=== PATIENT | male | born 1985 | race Caucasian/White ===

== ENCOUNTER 2016-06-16 01:07 | Emergency (ER) | payer SELFPAY ==
--- NOTE | ~2016-06-16 | ER ---
PATIENT'S NAME: EDE GRAY [facility] AGE: 31 Y [address] ROOM: [place] [address] LOCATION: ED ADMIT DATE: 06/16/2016 ER/Outpatient Report DISCHARGE DATE: 06/16/2016 FAMILY PHYSICIAN: PHYSICIAN, NO ATTENDING PHYSICIAN: Rosa Sampson HISTORY OF PRESENT ILLNESS: This is a 31-year-old male who presents today with chief complaint of left upper tooth pain. The patient says he has had a root canal there before and he broke it recently, but in the last day it has been just excruciating pain. Has taken ibuprofen without any relief of the pain. Currently, his pain is 8/10 and max is 10/10. He says the pain sort of radiates to the whole left side of his face, but he denies any fever, chills, sore throat, cough, hoarse voice, or any other complaints at this time. PAST MEDICAL HISTORY: Includes hypertension, bipolar disorder. SOCIAL HISTORY: No surgical history. SOCIAL HISTORY: He smokes half-a-pack per day, has done so for years. No drugs or alcohol use. MEDICATIONS: Please see med list. ALLERGIES: NONE. REVIEW OF SYSTEMS: Reviewed by me and negative with the exception of those discussed in HPI. PHYSICAL EXAMINATION: VITAL SIGNS: The patient is 5 feet 9 inches, he weighs 78.6 kilograms, blood pressure 141/90, heart rate 72, respiratory rate 16, temperature is 97.6, saturating 96% on room air. GENERAL: The patient is holding an ice pack to left side of his face. He looks uncomfortable but nontoxic. HEENT: His mouth; the left upper molar is cracked with exposure of tooth. There is some mild swelling of the gums around it, but there is no fluctuance and there is no drainage. He has no tongue edema. He does not have any elevation of the tongue. NECK: He does not have any brawny edema of the neck. PATIENT'S NAME: EDE GRAY [facility] AGE: 31 Y [address] ROOM: [place] [address] LOCATION: [facility] ADMIT DATE: 06/16/2016 ER/Outpatient Report DISCHARGE DATE: 06/16/2016 FAMILY PHYSICIAN: PHYSICIAN, NO ATTENDING PHYSICIAN: Rosa Sampson EMERGENCY ROOM COURSE: The patient was given 2 Percocets. Instructions to follow up with a dentist as soon as he can as the known treatment for that would be to have that tooth pulled, and he was also given a script for some Percocet and also I gave him a script for penicillin-VK to cover for infection. He understands that he needs to follow up with a dentist. IMPRESSION: Dental pain. MD ANDREW CORDERO/lazaro /[id number] d: 06/16/16399 t: 06/16/16 1822, OUTPATIENT REPORT
[2016-08-18] MEDS ORDERED: LAMICTAL200 MG PO (18:19)
[2016-08-18] MEDS ORDERED: PROZAC20 MG PO (18:21)
[2016-08-18] MEDS ORDERED: INDERAL20 MG PO (18:22)
[2016-08-18] MEDS ORDERED: RITALIN 20 MG PO (18:23)
[2016-08-18] MEDS ORDERED: RITALIN SR 20MG20 MG PO (18:24)
[2016-08-18] MEDS ORDERED: LIBRIUM10 MG PO (18:26)
[2016-08-21] MEDS ORDERED: VISTARIL50 MG PO (10:46)
[2016-08-21] MEDS ORDERED: NICODERM TOP (10:57)
[2016-08-21] MEDS ORDERED: "\\\"PREP SPRAY\\\"-TIN4 OZ" (10:59)
[2016-08-21] MEDS ORDERED: PROTONIX20 MG PO (10:59)
[2016-08-21] MEDS ORDERED: MINIPRESS1 M1 PO (11:01)
== END 2016-06-16 01:36 | disposition disaster alternative care site (69) ==
LOC: GMED 01:07
DX: K08.89 Other specified disorders of teeth and supporting structures (principal); F31.9 Bipolar disorder, unspecified; F17.210 Nicotine dependence, cigarettes, uncomplicated; I10 Essential (primary) hypertension; Z79.899 Other long term (current) drug therapy

== ENCOUNTER 2016-09-18 13:30 | Inpatient (IN) | payer SELFPAY ==
[~2016-09-18] VITALS: Ht 180.3 cm; Wt 79.1 kg
--- NOTE | ~2016-09-18 | DS ---
PATIENT'S NAME: EDE GRAY [facility] AGE: 31 Y [address] ROOM: [place] [address] [place] [facility] DATE: 09/18/2016 Discharge Summary DISCHARGE DATE: 09/21/2016 FAMILY PHYSICIAN: Physician, Unknown ATTENDING PHYSICIAN: Jimbo Peters ADMITTING DIAGNOSIS: Acute respiratory failure requiring mechanical ventilation secondary to medication overdose. DISCHARGE DIAGNOSIS: Acute respiratory failure requiring mechanical ventilation secondary to medication overdose, resolved. SECONDARY DIAGNOSES: 1. Suicidal attempt. 2. Mood disorder. 3. Bipolar disorder. 4. Previous suicidal attempt. HISTORY OF PRESENT ILLNESS: The patient is a 31-year-old male with history of bipolar disorder and previous suicidal attempt who presented to the emergency room for taking an unknown amount of medications including propranolol, Librium, and Lamictal. The patient, after his initial attempt with overdose with the above medications, was found by a family member and promptly brought to the emergency department. After arriving in the emergency room, the patient's mental status rapidly deteriorated and showed altered mental status. He was intubated and placed on mechanical ventilation to protect airway. Poison Control was contacted by the emergency department. Recommendation to do serial EKGs and have troponin at bedside, and calcium gluconate was given initially. HOSPITAL COURSE: The patient was admitted to the ICU and continued to be on mechanical ventilation overnight. The patient was extubated the next day with no trouble. However, the patient was noted to have significant amount of vertigo and nystagmus and a few bouts of nausea and vomiting associated with it. The patient was started on meclizine p.r.n. for nausea, vomiting, and vertigo. The patient was observed one more night for his vertigo. The patient was followed by serial EKGs and lab. The patient's vertigo improved. The patient was seen by Physical Therapy during his stay. On the day of discharge, the patient was able to walk with a normal gait. The patient denies any nausea, vomiting, or vertigo. The patient also reports that currently he is not suicidal. CONDITION: Stable. DISPOSITION: To [facility]. PATIENT'S NAME: EDE GRAY [facility] AGE: 31 Y [address] ROOM: [place] [address] [place]: [facility] [place] DATE: 09/18/2016 Discharge Summary DISCHARGE DATE: 09/21/2016 FAMILY PHYSICIAN: Physician, Unknown ATTENDING PHYSICIAN: Jimbo Peters DISCHARGE MEDICATIONS: Please see MAR. FOLLOWUP: To follow up with Emily berman physician. Greater than 30 minutes were spent on discharge planning. MD RADHA ESCUDERO/lazaro /[id number] d: 09/21/16 182 t: 09/23/16 1108, DISCHARGE SUMMARY
--- NOTE | ~2016-09-18 | HP ---
PATIENT'S NAME: EDE GRAY [facility] AGE: 31 Y [address] ROOM: [place] [address] LOCATION: [facility] ADMIT DATE: 09/18/2016 History & Physical DISCHARGE DATE: FAMILY PHYSICIAN: PHYSICIAN, UNKNOWN ATTENDING PHYSICIAN: GERBER HEREDIA DATE OF SERVICE: CHIEF COMPLAINT: 1. Acute respiratory failure requiring mechanical intubation. 2. Drug overdose, possible suicide attempt. HISTORY OF PRESENT ILLNESS: This is a 31-year-old male with a history of bipolar disorder and previous suicide attempts, who presented to the Emergency Room after taking an unknown amount of medications including propranolol, Percocet, and some Librium. The patient, after his initial attempt with overdosing with the above medications, was found by a family member and promptly brought to the Emergency Room. After arriving at the Emergency Room, the patient's mental status rapidly deteriorated, and showed altered mental status was troubled, protecting his airways, and he was subsequently intubated for airway protection and maintenance. Poison Control was contacted by the ED, and recommendations to do serial EKGs and have atropine at bedside and give calcium gluconate, which all are initially done. The patient's initial lab values, are for the most part, unremarkable. Upon arrival to the ICU, the patient unfortunately self- extubated, but continued to be aggressive and also severely altered at risk of not maintaining an airway, and I had him re-intubated and adequately sedated. PAST MEDICAL HISTORY: 1. Bipolar disorder. 2. Previous suicide attempt. 3. Hypertension. SOCIAL HISTORY: He smokes about half pack a day, and has done so for years. No reports of drug or alcohol use. FAMILY HISTORY: Per review of charts, the patient has history of hypertension in his parents, but I am unable to get a detailed history due to the patient's mental status, and no family is around during my visit to get further history on this. REVIEW OF SYSTEMS: Again, I am not able to conduct a full review of systems due to the patient's state of mind at this point. The patient does appear agitated and confused, PATIENT'S NAME: EDE GRAY [facility] AGE: 31 Y [address] ROOM: [place] [address] LOCATION: [facility] ADMIT DATE: 09/18/2016 History & Physical DISCHARGE DATE: FAMILY PHYSICIAN: PHYSICIAN, UNKNOWN ATTENDING PHYSICIAN: GERBER HEREDIA and not responsive to any command overall. PHYSICAL EXAMINATION: VITAL SIGNS: Blood pressure was 127/74, pulse was 78, respiratory rate was 28, and saturating on 60% FiO2 on mechanical ventilation. GENERAL: The patient is agitated and aggressive, and not responding to any of my commands or attempts to wake him up. CHEST: Clear to auscultation bilaterally. HEART: S1 and S2, tachycardic, but regular rate and rhythm. ABDOMEN: Soft, nontender, and nondistended. EXTREMITIES: Without edema. SKIN: Without rash or lesions. NEUROLOGICAL: Grossly nonfocal and moves all of his extremities. MUSCULOSKELETAL: No joint effusion, erythema, or swelling noted. HEENT: Pupils were pin-pointed, but reactive. LABORATORY DATA: Labs were reviewed. ASSESSMENT AND PLAN: 1. Acute respiratory failure, related to his overdosing on sedating medications including Librium, Percocet, and propranolol. The patient is hemodynamically stable. Vital signs look okay. We will continue to closely monitor and follow recommendations from Poison Control and give one more calcium gluconate. Monitor EKGs every 12 hours and keep on atropine at bedside, and keep an eye on electrolytes and replace as necessary. 2. Drug overdose. The patient appears to have done this intentionally. He does have a history of suicide attempts. We will continue supportive care, monitor overnight and evaluate for extubation in the morning, and manage as above overall. 3. Suicide attempt. We will involve Psych for consult. The patient apparently had been seen at [facility] in the past per chart review and report from the Emergency Room. 4. Deep venous thrombosis prophylaxis with SCDs and Lovenox. 5. Bipolar disorder, type 1. We will await recommendations from Psych on how to continue managing this in a 24-hour period. Of note, urine drug screen is positive for amphetamines and benzodiazepine. MD FRANK CORDERO/lazaro PATIENT'S NAME: EDE GRAY [facility] AGE: 31 Y [address] ROOM: [facility] [place], [place] [address] LOCATION: [facility] ADMIT DATE: 09/18/2016 History & Physical DISCHARGE DATE: FAMILY PHYSICIAN: , BHAVESH ATTENDING PHYSICIAN: GERBER HEREDIA /[id number] D: T: HISTORY & PHYSICAL
--- NOTE | ~2016-09-18 | ER ---
PATIENT'S NAME: EDE GRAY [facility] AGE: 31 Y [address] ROOM: [place] [address] LOCATION: [facility] ADMIT DATE: 09/18/2016 ER/Outpatient Report DISCHARGE DATE: FAMILY PHYSICIAN: PHYSICIAN, UNKNOWN ATTENDING PHYSICIAN: GERBER PETERS Time of Arrival: 1330 hours. Time of Evaluation: 1330 hours. CHIEF COMPLAINT: Overdose. HISTORY OF PRESENT ILLNESS: The patient is a 31-year-old male, who presents to the emergency department today with a chief complaint of overdose. The patient apparently took an unknown quantity of pills. He does have empty bottles of propranolol 20 mg with quantity of 90; oxycodone and acetaminophen 7.5/325, quantity #12, as well as Librium. Apparently, the patient took these pills about an hour and a half prior to arrival. Mother and father called the police. They did arrive and brought the patient in for further evaluation and treatment. Upon arrival here in the emergency department, the patient is sleepy with slurred speech. He does report he does not remember how many pills he did take. He has been drinking alcohol with this. Denies any fevers or chills. No nausea or vomiting. No diarrhea or constipation. No chest pain reported. PAST MEDICAL HISTORY: Taken from previous records, hypertension and bipolar. PAST SURGICAL HISTORY: None reported. SOCIAL HISTORY: The patient smokes half pack per day for several years. Denies any illicit drug use. Does have a history of alcohol use. ALLERGIES: NO KNOWN DRUG ALLERGIES. MEDICATIONS: Please see list. PRIMARY CARE DOCTOR: None reported. REVIEW OF SYSTEMS: PATIENT'S NAME: EDE GRAY [facility] AGE: 31 Y [address] ROOM: [address] [address] LOCATION: [facility] ADMIT DATE: 09/18/2016 ER/Outpatient Report DISCHARGE DATE: FAMILY PHYSICIAN: PHYSICIAN, UNKNOWN ATTENDING PHYSICIAN: GERBER PETERS All systems are unable to be reviewed secondary to the patient's medical condition and poor cooperation with answering questions. PHYSICAL EXAMINATION: VITAL SIGNS: Blood pressure 130/95, pulse 79, respiratory rate 16, temperature 98.8, oxygen saturation 97% on room air. GENERAL: The patient is a 31-year-old male, who appears stated age. He is combative and does have slurred speech. He has episodes of being sleepy, however, though as well. HEENT: Pupils are equal, round, and reactive to light. Extraocular motions are intact. Nares are patent bilaterally. Oropharynx is clear. NECK: Supple. There is no nuchal rigidity. CARDIOVASCULAR: Regular rate and rhythm. No murmurs, rubs, or gallops. LUNGS: Clear to auscultation bilaterally. No wheezes, rales, or rhonchi. ABDOMEN: Soft, nontender, and nondistended. No rebound, rigidity, or guarding. MUSCULOSKELETAL: The patient moves all 4 extremities. SKIN: Warm and dry. LABORATORY DATA AND X-RAYS: Labs and x-rays are obtained. EKG is obtained, interpreted by myself at 1343 hours shows sinus rhythm with a rate of 71, normal axis, normal interval. No ST elevation, ST depression, or T-wave inversions. CBC is normal. CMP is normal. LFTs are normal. Alcohol is 0.179, acetaminophen 13.3, salicylates less than 2.8. A post intubation x-ray reveals ET tube, it does need advanced. IMPRESSION: 1. Overdose polysubstance including propranolol, Librium, and Percocet as well as alcohol. 2. Alcohol intoxication. 3. Acute respiratory failure, requiring intubation. 4. Suspected suicidal ideation. 5. Initial visit. EMERGENCY DEPARTMENT COURSE: The patient was brought back to the examination room. Seen and evaluated by myself. IV is established. Laboratory analysis and imaging are obtained as described above. The patient was given a liter of normal saline. The patient does have episodes of vomiting here in the emergency department. With a concern with his worsening mental status and vomiting, I selected the patient will require emergent intubation for airway control. The patient is pre- oxygenated with 15 L non-rebreather. I think oxygen is used during intubation. A Alon video laryngoscope is used. Cords are visualized. A 7.5 ET tube is passed. End-tidal CO2 does show colorimetric changes. There are PATIENT'S NAME: EDE GRAY [facility] AGE: 31 Y [address] ROOM: [place] [address] LOCATION: [facility] ADMIT DATE: 09/18/2016 ER/Outpatient Report DISCHARGE DATE: FAMILY PHYSICIAN: PHYSICIAN, UNKNOWN ATTENDING PHYSICIAN: GERBER PETERS bilateral breath sounds. No epigastric sounds noted. Postprocedure chest x- ray is obtained, does reveal an ET-tube that needs advanced, tube is advanced 4 cm. I did discuss the case with Dr. Peters, hospitalist Service. He does agree to accept the patient for further evaluation, treatment, and management. We did contact Poison Control. Their recommendations are noted. The patient has not had symptomatology of beta-regulo overdose at this point. His EKG is not reflective of that. His heart rates have been in the 70s to 90s. His blood pressures have remained stable. The patient's old medical records are reviewed by myself. The patient did require cumulative critical care time of 32 minutes. This did include reviewing the patient's old medical records, talking with consultants, ordering tests, reviewing tests, as well as close monitoring of the patient with significant potential overdose on multiple medications, as well as alcohol intoxication. DISPOSITION: The patient is admitted under the care of hospitalist service to the intensive care unit in fair condition. DO IVON GUILLEN/lazaro /[id number] d: 09/18/162026 t: 09/19/16 08, OUTPATIENT REPORT
[2016-09-18 13:42] LABS: BASOPHIL # 0.2 K/uL (0.0-0.2); EOSINOPHIL # 0.3 K/uL (0.0-0.5); EOSINOPHIL % 2.6 %; HEMATOCRIT 47.4 % (37.0-53.0); HEMOGLOBIN 16.6 g/dL (12.0-17.0); IMMATURE GRANULOCYTE % 0.2 %; LYMPHOCYTE # 2.3 K/uL (0.8-4.0); LYMPHOCYTE % 23.1 %; MCH 31.3 pg (27.0-34.0); MCV 89.3 fl (83.0-98.0); MONOCYTE # 0.7 K/uL (0.0-1.0); MPV 8.6 fl (9.4-12.4); NEUTROPHIL # (ANC) 6.5 K/uL (1.4-9.0); NEUTROPHIL % 65.1 %; NRBC % 0 /100WBC (0-0.00); RBC 5.31 M/uL (4.00-6.00); RDW-CV 12.6 % (11.9-14.6); WBC 9.9 K/uL (4.0-11.0)
[2016-09-18 13:49] LABS: PLATELET COUNT 384 K/uL (150-450)
[2016-09-18 13:58] LABS: ALBUMIN 3.9 gm/dL (3.5-5.0); ALK PHOS 67 IU/L (33-138); ALT 28 IU/L (12-78); ANION GAP 12.1 (10.0-19.0); AST 26 IU/L (10-40); BLOOD UREA NITROGEN 6 mg/dL (6-24); CALCIUM 8.8 mg/dL (8.5-10.5); CHLORIDE 99 mMol/L (96-110); CO2 29 mMol/L (22-32); POTASSIUM 4.1 mMol/L (3.7-5.1); SODIUM 136 mMol/L (135-145); TOTAL BILIRUBIN 0.4 mg/dL (0.0-1.5); TOTAL PROTEIN 7.6 g/dL (6.0-8.4)
[2016-09-18 14:36] LABS: AMPHETAMINE POSITIVE (NEGATIVE); BARBITURATE NEGATIVE (NEGATIVE); COCAINE NEGATIVE (NEGATIVE); OPIATES NEGATIVE (NEGATIVE)
[2016-09-18 16:32] LABS: BICARBONATE 25.4 mmol/L (18.0-23.0); PCO2 40 mmHg (35-45); PO2 159 mmHg (80-90)
[2016-09-19 02:38] LABS: ALBUMIN 3.1 gm/dL (3.5-5.0); ANION GAP 11.4 (10.0-19.0); CALCIUM 8.2 mg/dL (8.5-10.5); CREATININE 1.1 mg/dL (0.6-1.3); MAGNESIUM 1.7 mg/dL (1.8-2.6); POTASSIUM 3.4 mMol/L (3.7-5.1); TOTAL PROTEIN 5.7 g/dL (6.0-8.4)
[2016-09-19 02:40] LABS: TOTAL BILIRUBIN 0.8 mg/dL (0.0-1.5)
[2016-09-19 04:06] LABS: BICARBONATE 27.6 mmol/L (18.0-23.0); PCO2 33 mmHg (35-45); PO2 121 mmHg (80-90)
[2016-09-19 14:26] LABS: ALBUMIN 3.1 gm/dL (3.5-5.0); ANION GAP 12.5 (10.0-19.0); CREATININE 1.1 mg/dL (0.6-1.3); MAGNESIUM 1.8 mg/dL (1.8-2.6); POTASSIUM 3.5 mMol/L (3.7-5.1); TOTAL BILIRUBIN 0.8 mg/dL (0.0-1.5); TOTAL PROTEIN 6.1 g/dL (6.0-8.4)
[2016-09-19] MEDS ORDERED: RITALIN 20 MG PO (15:25)
[2016-09-20 02:26] LABS: ALBUMIN 2.8 gm/dL (3.5-5.0); ALK PHOS 52 IU/L (33-138); ALT 19 IU/L (12-78); ANION GAP 11.2 (10.0-19.0); AST 23 IU/L (10-40); BLOOD UREA NITROGEN 11 mg/dL (6-24); CALCIUM 7.7 mg/dL (8.5-10.5); CHLORIDE 109 mMol/L (96-110); CO2 25 mMol/L (22-32); MAGNESIUM 1.9 mg/dL (1.8-2.6); POTASSIUM 3.2 mMol/L (3.7-5.1); SODIUM 142 mMol/L (135-145); TOTAL BILIRUBIN 0.5 mg/dL (0.0-1.5); TOTAL PROTEIN 5.7 g/dL (6.0-8.4)
[2016-09-20 15:05] LABS: ALBUMIN 3.3 gm/dL (3.5-5.0); CALCIUM 8.3 mg/dL (8.5-10.5); CREATININE 1.4 mg/dL (0.6-1.3); TOTAL PROTEIN 6.9 g/dL (6.0-8.4)
[2016-09-20 15:06] LABS: ANION GAP 12.2 (10.0-19.0); POTASSIUM 4.2 mMol/L (3.7-5.1); TOTAL BILIRUBIN 0.3 mg/dL (0.0-1.5)
[2016-09-21 02:21] LABS: ALBUMIN 2.6 gm/dL (3.5-5.0); ANION GAP 10.1 (10.0-19.0); CALCIUM 7.8 mg/dL (8.5-10.5); CREATININE 1.2 mg/dL (0.6-1.3); POTASSIUM 4.1 mMol/L (3.7-5.1); TOTAL BILIRUBIN 0.2 mg/dL (0.0-1.5); TOTAL PROTEIN 5.6 g/dL (6.0-8.4)
[2016-09-21 14:59] LABS: ALBUMIN 2.9 gm/dL (3.5-5.0); ALK PHOS 65 IU/L (33-138); ALT 18 IU/L (12-78); ANION GAP 9.2 (10.0-19.0); AST 21 IU/L (10-40); BLOOD UREA NITROGEN 8 mg/dL (6-24); CALCIUM 8.2 mg/dL (8.5-10.5); CHLORIDE 108 mMol/L (96-110); CO2 31 mMol/L (22-32); MAGNESIUM 2.1 mg/dL (1.8-2.6); POTASSIUM 4.2 mMol/L (3.7-5.1); SODIUM 144 mMol/L (135-145); TOTAL BILIRUBIN 0.2 mg/dL (0.0-1.5)
== END 2016-09-21 19:35 | DRG 917 ==
LOC: GMED 13:30 → GMSU 14:16 → GICU 14:16 → GMSU 09-20 10:20
PROVIDERS: Emergency Medicine; Internal Medicine; ADMIT Internal Medicine
DX: T44.7X2A Poisoning by beta-adrenoreceptor antagonists, intentional self-harm, initial encounter (principal); G92 Toxic encephalopathy; J96.01 Acute respiratory failure with hypoxia; T42.4X2A Poisoning by benzodiazepines, intentional self-harm, initial encounter; T42.6X2A Poisoning by other antiepileptic and sedative-hypnotic drugs, intentional self-harm, initial encounter; T39.1X2A Poisoning by 4-Aminophenol derivatives, intentional self-harm, initial encounter; F31.9 Bipolar disorder, unspecified; I10 Essential (primary) hypertension; F17.200 Nicotine dependence, unspecified, uncomplicated; R42 Dizziness and giddiness; H55.00 Unspecified nystagmus; Z91.5 Personal history of self-harm; Z78.1 Physical restraint status
CPT/HCPCS: C9113; G0480; J0610; J1650; J2250; J2405; J2550; J2704; J3010; J3480; J7030; J7040; J7050

== ENCOUNTER → 2016-09-18 | Outpatient (CLI) | payer SELFPAY ==
[~2016-09-18] MED LIST: "\\\"PREP SPRAY\\\"-TIN4 OZ"; INDERAL20 MG PO; LAMICTAL200 MG PO; LIBRIUM10 MG PO; MINIPRESS1 M1 PO; NICODERM TOP; PROTONIX20 MG PO; PROZAC20 MG PO; RITALIN 20 MG PO; RITALIN SR 20MG20 MG PO; VISTARIL50 MG PO
== END | disposition disaster alternative care site (69) ==
LOC: GAMB 13:05
DX: T65.91XA Toxic effect of unspecified substance, accidental (unintentional), initial encounter (principal)
CPT/HCPCS: A0425; A0427